=== PATIENT | female | born 1990 | race Caucasian/White ===

== ENCOUNTER 2018-07-11 16:43 | Emergency (ER) | payer MEDICAID ==
[2018-07-11 16:53] VITALS: BP 105/57
--- NOTE | 2018-07-11 17:10 | UC ---
Ear Complaint HPI - HPI Summary HPI Summary: 27 y/o female presents to the urgent care c/o B/L ear pain for the past week. Pt reports about 10 days ago she was Dx w/ Otitis media and externa on the left ear and was Rx otic drops and Amoxicillin PO. She finished medications and symptoms are returning. LF<RT. Pain is 8/10 and radiating to her upper jaw. She also has some caries on B/L upper jaw. But she has an appt w/ Oral surgeon in 2 weeks. Pt took Ibuprofen PO about 1hrs ago to alleviate symptoms. Pt denies fever, dizziness, trismus, tinnitus, SOB, chest pain, abdominal pain, N/V /D. - History of Current Complaint Chief Complaint: UCEar Stated Complaint: EAR PAIN Time Seen by Provider: 07/11/18 17:08 Hx Obtained From: Patient Hx Last Menstrual Period: [id number] ?: No Onset/Duration: Gradual Onset, Lasting Weeks - 1 week, Still Present Severity Initially: Moderate Severity Currently: Moderate Pain Intensity: 9 Pain Scale Used: 0-10 Numeric Aggravating Factors: Other - touch Alleviating Factors: OTC Meds Associated Signs/Symptoms: Positive: Hearing Loss - Allergies/Home Medications Allergies/Adverse Reactions: Allergies Allergy/AdvReac Type Severity Reaction Status Date / Time ibuprofen Allergy Unknown Verified 07/11/18 16:55 Reaction Details prednisone Allergy Unknown Verified 07/11/18 16:55 Reaction Details Home Medications: Home Medications Acamprosate Calcium 666 mg PO TID 07/11/18 [History Confirmed 07/11/18] Acetaminophen TAB* [Tylenol TAB*] 650 mg PO Q4H PRN 07/11/18 [History Confirmed 07/11/18] Albuterol HFA INHALER* [Ventolin HFA Inhaler*] 2 puff INH Q4H PRN 07/11/18 [ History Confirmed 07/11/18] Nicotine PATCH 14 MG/24 HR* 14 mg TRANSDERM DAILY 07/11/18 [History Confirmed ] Nicotine Polacrilex [Nicotine Gum] 4 mg BC BID PRN 07/11/18 [History Confirmed 07/11/18] QUEtiapine XR TAB* [Seroquel Xr 200 TAB*] 200 mg PO BEDTIME 07/11/18 [History Confirmed 07/11/18] Sertraline* [Zoloft*] 50 mg PO DAILY 07/11/18 [History Confirmed 07/11/18] busPIRone TAB* [Buspar TAB *] 15 mg PO TID 07/11/18 [History Confirmed 07/11/18] hydrOXYzine pamoate [Vistaril] 25 mg PO TID 07/11/18 [History Confirmed 07/11/18 ] PMH/Surg Hx/FS Hx/Imm Hx Previously Healthy: Yes Psychological History: Depression, Schizophrenia Other Cancer History: 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 - Surgical History Surgical History: Yes Surgery Procedure, Year, and Place: ulcer repair as a child - Family History Known Family History: Positive: None - Pt denies FMHX - Social History Occupation: Employed Full-time Lives: With Family Alcohol Use: None Substance Use Type: None Smoking Status (MU): Former Smoker Review of Systems Constitutional: Negative Skin: Negative Eyes: Negative ENT: Negative - ear pain, Ear Ache Respiratory: Negative Cardiovascular: Negative Gastrointestinal: Negative Genitourinary: Negative Motor: Negative Neurovascular: Negative Musculoskeletal: Negative Neurological: Headache Psychological: Negative Is Patient Immunocompromised?: No All Other Systems Reviewed And Are Negative: Yes Physical Exam - Summary Physical Exam Summary: Vital signs: reviewed General: well developed, well nourished female sitting in the examining table w/ o any apparent distress Skin: [place], warm and dry, no evidence of atopic dermatitis, psoriasis, seborrhea. HEENT: -Head: atraumatic, non tender; no scalp dermatitis. -Eyes: sclera and conjunctiva clear, PERRLA, EOMI -Ears: no pre- or postauricular lymphadenopathy or erythema; RT external ear canal impacted w/ cerumen unable to visualize TM, Pinna tender on palpation, LF external ear canal clear and LF TM WNL. TMs normal w/out bulging or retraction. Good light reflex. No fluid level, vesicles, or bullae. No perforation. -Nose/Face: erythematous and edematous nasal mucosa with clear rhinorrhea, no frontal or maxillary sinus tender to palpation. -Mouth/Throat: Mucous membrane moist, posterior pharynx clear, no erythema or exudates. Neck: supple, FROM, nontender, no lymphadenopathy, no meningismus. Chest: Clear to auscultation, normal breath sounds Abd: soft, Bowel sounds active, Nontender. Back: no spinal or CVAT Neuro: A&O x4, GCS 15, no focal neuro deficits, normal behavior for age. Triage Information Reviewed: Yes Vital Signs: Initial Vital Signs Temp 98.4 F 07/11/18 16:47 Pulse 69 07/11/18 16:47 Resp 16 07/11/18 16:47 BP 105/57 07/11/18 16:47 Pulse Ox 100 07/11/18 16:47 Ear Complaint Course/Dx - Course Course Of Treatment: 27 y/o female presents to the urgent care c/o B/L ear pain for the past week. Pt reports about 10 days ago she was Dx w/ Otitis media and externa on the left ear and was Rx otic drops and Amoxicillin PO. She finished medications and symptoms are returning. LF<RT. Pain is 8/10 and radiating to her upper jaw. She also has some caries on B/L upper jaw. But she has an appt w / Oral surgeon in 2 weeks. Pt took Ibuprofen PO about 1hrs ago to alleviate symptoms. Pt denies fever, dizziness, trismus, tinnitus, SOB, chest pain, abdominal pain, N/V/D. Pt w/ Left external ear canal impacted w/ cerumen on examination. Left ear irrigation ordered and performed by Nurse. Pt tolerated well procedure and external ear canla clear and LF TM injected w/ Erythema. Pt w / Otitis Media. Pt Rx Augmentin PO. Pt Advised to conmtinue taking tylenol for pain. If symptoms do not improve or worsen to return to the urgent care or f/u with PCP in 3 days for further management. Pt understood and agreed with D/C instructions. - Differential Dx/Diagnosis Differential Diagnosis/HQI/PQRI: Barotrauma, Cerumen Impaction, Otitis Externa, Otitis Media Provider Diagnoses: 1- Left ear cerumen impaction. 2- Left otitis media Discharge - Sign-Out/Discharge Documenting (check all that apply): Patient Departure - D/C home All imaging exams completed and their final reports reviewed: No Studies - Discharge Plan Condition: Stable Disposition: HOME Prescriptions: Amoxicillin/Clavulanate TAB* [Augmentin TAB 875*] 875 mg PO BID #20 tab Patient Education Materials: Cerumen Impaction (ED), Ear Infection (ED) Referrals: [facility] [place] [facility] [Outside] - 3 Days Additional Instructions: 1- Please take the full course of the antibiotic to avoid resistance. 2-Please takeTylenol PO q6-8hrs prn as instructed after meals to alleviate pain and swelling. Apply ice to alleviate pain, Increase fluid intake, eat well , rest and avoid strenuous exercise 3-If symptoms do not improve or worsen please return to the urgent care or f/u with your PCP 3 days for further evaluation and treatment. - Billing Disposition and Condition Condition: STABLE Disposition: Home
== END 2018-07-11 18:00 | disposition home or self-care (01) ==
LOC: UCEAST 16:43
DX: H61.22 Impacted cerumen, left ear (principal); H66.92 Otitis media, unspecified, left ear; F20.9 Schizophrenia, unspecified; Z79.899 Other long term (current) drug therapy; Z88.6 Allergy status to analgesic agent; Z88.8 Allergy status to other drugs, medicaments and biological substances; Z87.891 Personal history of nicotine dependence
CPT/HCPCS: 99213; G0463

== ENCOUNTER 2018-07-20 15:18 | Emergency (ER) | payer MEDICAID ==
--- NOTE | 2018-07-20 16:27 | RAD ---
INDICATION: Pain after a metal door ran over the left great toe TECHNIQUE: 4 views of the left great toe were obtained. FINDINGS: The visualized bones are normal alignment. Joint spaces appear maintained. No fracture is seen. IMPRESSION: NO EVIDENCE FOR FRACTURE. IF THE PATIENT'S SYMPTOMS PERSIST RECOMMEND FOLLOW-UP IMAGING.
--- NOTE | 2018-07-20 17:12 | ED ---
Lower Extremity - HPI Summary HPI Summary: Complains of pain to big toe of left foot after getting hit by a door today. Pain radiates up to left knee. Denies loss of sensation. Pain with ambulation. Denies any other injuries or pain, - History of Current Complaint Chief Complaint: EDExtremityLower Stated Complaint: LT BIG TOE INJURY Time Seen by Provider: 07/20/18 15:58 Hx Obtained From: Patient Hx Last Menstrual Period: [id number] Mechanism Of Injury: Blunt Trauma Onset of Pain: Immediate Onset/Duration: Hours Severity Initially: Severe Severity Currently: Severe Pain Intensity: 10 Pain Scale Used: 0-10 Numeric Timing: Constant Location: Radiates To - Left knee Character Of Pain: Throbbing Associated Signs And Symptoms: Positive: Bruising Aggravating Factor(s): Ambulation, Weight Bearing Alleviating Factor(s): Rest, Elevation, OTC Meds Able to Bear Weight: Yes - Allergies/Home Medications Allergies/Adverse Reactions: Allergies Allergy/AdvReac Type Severity Reaction Status Date / Time prednisone Allergy Unknown Verified 07/20/18 15:31 Reaction Details PMH/Surg Hx/FS Hx/Imm Hx Endocrine/Hematology History: Denies: Hx Anticoagulant Therapy Cardiovascular History: Denies: Hx Cardiac Arrest Respiratory History: Reports: Hx Asthma Neurological History: Denies: Hx CVA - Surgical History Surgery Procedure, Year, and Place: ulcer repair as a child Infectious Disease History: No Infectious Disease History: Denies: Traveled Outside the [place] in Last 30 Days - Family History Known Family History: Positive: None - Pt denies FMHX - Social History Alcohol Use: None Substance Use Type: Reports: None Smoking Status (MU): Former Smoker Review of Systems Constitutional: Negative Eyes: Negative ENT: Negative Cardiovascular: Negative Respiratory: Negative Gastrointestinal: Negative Genitourinary: Negative Musculoskeletal: Other Positive: Bruising Neurological: Negative Psychological: Normal All Other Systems Reviewed And Are Negative: Yes Physical Exam - Summary Physical Exam Summary: No swelling, erythema, ecchymosis, deformity, extra warmth noted to pick toe of left foot or left foot in general. PMS intact on big toe. Pain with passive flexion and extension. Triage Information Reviewed: Yes Vital Signs On Initial Exam: Initial Vitals Temp Pulse Resp BP Pulse Ox 98.7 F 83 16 131/83 98 07/20/18 15:27 07/20/18 15:27 07/20/18 15:27 07/20/18 15:27 07/20/18 15:27 Vital Signs Reviewed: Yes Appearance: Positive: Well-Appearing Skin: Positive: Warm Head/Face: Positive: Normal Head/Face Inspection Eyes: Positive: Normal Neck: Positive: Supple Respiratory/Lung Sounds: Positive: Clear to Auscultation Cardiovascular: Positive: Normal Abdomen Description: Positive: Nontender Musculoskeletal: Positive: Normal Neurological: Positive: Normal Psychiatric: Positive: Normal AVPU Assessment: Alert - Dotty Coma Scale Best Eye Response: 4 - Spontaneous Best Motor Response: 6 - Obeys Commands Best Verbal Response: 5 - Oriented Coma Scale Total: 15 Diagnostics - Vital Signs Vital Signs Temp Pulse Resp BP Pulse Ox 07/20/18 15:27 98.7 F 83 16 131/83 98 - Laboratory Lab Statement: Any lab studies that have been ordered have been reviewed, and results considered in the medical decision making process. - Radiology toie Xray Interpretation: No Acute Changes Radiology Interpretation Completed By: Radiologist Lower Extremity Course/Dx - Course Course Of Treatment: Complains of pain to big toe of left foot after getting hit by a door today. Pain radiates up to left knee. Denies loss of sensation. Pain with ambulation. Denies any other injuries or pain,. Physical exam:No swelling, erythema, ecchymosis, deformity, extra warmth noted to pick toe of left foot or left foot in general. PMS intact on big toe. Pain with passive flexion and extension. X-ray negative for acute process. Recommend ice, elevation, ibuprofen. - Diagnoses Provider Diagnoses: Sprain of toe, great, left Discharge - Sign-Out/Discharge Documenting (check all that apply): Patient Departure - Discharge Plan Condition: Stable Disposition: HOME Patient Education Materials: Foot Contusion (ED) Referrals: No Primary Care Phys,NOPCP [Primary Care Provider] - Additional Instructions: Ice and ibuprofen and rest. Return to the ED for any new or worsening symptoms - Billing Disposition and Condition Condition: STABLE Disposition: Home
[2018-07-20 17:42] VITALS: BP 129/85
== END 2018-07-20 17:40 | disposition home or self-care (01) ==
LOC: ED 15:18
DX: S93.502A Unspecified sprain of left great toe, initial encounter (principal); W22.8XXA Striking against or struck by other objects, initial encounter; Y92.9 Unspecified place or not applicable
CPT/HCPCS: 99281